=== PATIENT | female | born 1930 | race Caucasian/White ===

== ENCOUNTER 2018-05-27 16:44 | Inpatient (IN) | payer MEDICARE, BC ==
[~2018-05-27] VITALS: Ht 167.6 cm; Wt 54.9 kg
--- NOTE | 2018-05-27 17:00 | NUR ---
Dr Vick at the bedside for MSE.
[2018-05-27 17:35] LABS: ACETAMINOPHEN < 2.0 ug/mL (10-30); ALANINE AMINOTRANSFERASE 31 U/L (14-59); ALKALINE PHOSPHATASE 57 U/L (50-136); ASPARTATE AMINOTRANSFERASE 29 U/L (15-37); BILIRUBIN,DIRECT 0.2 mg/dL (0.0-0.2); BILIRUBIN,TOTAL 0.8 mg/dL (0.2-1.0); TOTAL PROTEIN, SERUM 7.2 g/dL (6.4-8.2)
[2018-05-27 17:39] LABS: ETHANOL < 3 MG/DL (0-0)
[2018-05-27] MEDS ORDERED: MAG355OR21 PO (17:42)
[2018-05-27] MEDS ORDERED: DONE5TAB34 PO (17:42)
[2018-05-27] MEDS ORDERED: DABI75CA3 PO (17:42)
[2018-05-27] MEDS ORDERED: DILT180C95 PO (17:42)
[2018-05-27] MEDS ORDERED: MIRT7.5T10 PO (17:42)
[2018-05-27] MEDS ORDERED: FAMO-132 PO (17:42)
[2018-05-27] MEDS ORDERED: QUET25TA PO ×3 (17:42)
[2018-05-27] MEDS ORDERED: ASPI81TA31 PO (17:42)
[2018-05-27] MEDS ORDERED: ONDA2VIA IV (17:42)
[2018-05-27] MEDS ORDERED: LEVO125T8 PO (17:42)
[2018-05-27] MEDS ORDERED: POLY255P19 PO (17:42)
[2018-05-27] MEDS ORDERED: GABA-532 PO (17:42)
[2018-05-27] MEDS ORDERED: SIMV40TA5 PO (17:42)
[2018-05-27] MEDS ORDERED: MEMA10TA PO (17:42)
[2018-05-27] MEDS ORDERED: GABA-534 PO (17:42)
[2018-05-27] MEDS ORDERED: QUET50TA PO (17:42)
[2018-05-27] MEDS ORDERED: DOCU100C36 PO (17:42)
--- NOTE | 2018-05-27 18:06 | NUR ---
DR SOW MEDICALLY CLEARED PT. PLACED A CALL TO PALLAVI SANTOS RN, FOR PSYCH EVAL.
--- NOTE | 2018-05-27 18:22 | NUR ---
Pt provided dinner, but states not liking any food and won't eat/drink today.
--- NOTE | 2018-05-27 18:40 | NUR ---
MRSA swab collected and sent to LAB. Belonging list completed.
--- NOTE | 2018-05-27 19:02 | NUR ---
Venecia from PET at the bedside for Psych eval. Pt's family info given to Venecia.
--- NOTE | 2018-05-27 19:33 | NUR ---
Pt is resting comfortably in bed with eyes closed. Safety measures implemented. Sitter at bedside. Pending geropsych admission.
--- NOTE | 2018-05-27 20:33 | NUR ---
Pt. admitted to MHU, under care of Dr. Estrada/Sarah Diagnosis: Psychosis Pt on [address] [place] Disabled. Belongs List completed. MRSA swab done.
[2018-05-27] MEDS ORDERED: ACETAMINOPHEN 325 MG TABLET PO PRN (20:45)
[2018-05-27] MEDS ORDERED: MAGNESIUM HYDROXIDE 30 ML LIQUID UDC PO PRN (20:45)
[2018-05-27] MEDS ORDERED: LORAZEPAM 0.5 MG TABLET PO PRN (20:45)
[2018-05-27] MEDS ORDERED: MAG HYDROX/AL HYDROX/SIMETH 30 ML LIQUID UDC PO PRN ×2 (20:45→23:15)
[2018-05-27 20:59] VITALS: BP 104/84
--- NOTE | 2018-05-27 22:30 | NUR ---
AT APPROX 2100 ADMITTED 87 YEARS OLD FEMALE TO [facility] MHU ON A 5150 HOLD FOR GD. PATIENT INITIALLY WAS TAKEN BY HER JUANJOSE TO [facility] ER IN [place] ON 05/24/18 D/T AGITATION, HALLUCINATING AND UNMANAGEABLE AT HOME. LATER, SHE WAS ADMITTED TO MED SURG/TELE UNIT WITH DX. ATRIAL FIB WITH RVR, IT WAS ALSO NOTED BY NURSING STAFF THAT PATIENT WAS ALSO HAVING AUDITORY AND VISUAL HALLUCINATIONS, AND INTERMITTENTLY AGITATED. ONCE MEDICALLY CLEARED PATIENT WAS TRANSPORTED TO [facility] ER AND WAS PLACED ON A 5150 FOR GD. HOLD STARTED ON 05/27/18 AT 1950 AND WILL END ON 05/30/18 AT 1950. UPON ADMISSION TO MHU, PATIENT WAS NOTED A/O X2 CALM AND COOPERATIVE. SHE IS ABLE TO AMBULATE WITH STEADY GAIT WITH THE AID OF A FWW. PATIENT NOTED UNKEPT, FORGETFUL, DISORGANIZED AND DISORIENTED. SHE WAS UNABLE TO SIGN ANY OF HIS ADMISSION PAPERS. UPON INTERVIEW SHE IS NOTED POOR HISTORIAN, HAVING AUDITORY HALLUCINATION. 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 MALLOY JUST TOLD ME THAT I NEED TO LEAVE THIS PLACE RIGHT AWAY". PATIENT WAS REASSURED AND REORIENTED. HEAD TO TOE ASSESSMENT WAS CONDUCTED, SKIN NOTED DRY WARM AND INTACT EXCEPT FOR MULTIPLE SKIN TAGS AND MOLES ON HER BACK AND CHEST. LONG UNKEPT TOENAILS AND FINGERNAILS WERE NOTED. WE WILL ORDER A PODIATRY CONSUL. PATIENT WAS NOTIFY OH HER HOLD. FACE TO FACE ASSESSMENT WAS DONE. OFFERED SNACKS. V/S STABLE AT THIS TIME. PATIENT IS UNDER THE CARE OF DR. RODRIGUEZ. WILL CONTINUE TO MONITOR.
[2018-05-27] MEDS ORDERED: POLYETHYLENE GLYCOL 3350 238 GM POWDER PO PRN (23:15)
[2018-05-28] MEDS ORDERED: MIRALAX 17 GM POWD.PACK PO PRN (07:14)
[2018-05-28 07:30] VITALS: BP 121/52
[2018-05-28] MEDS ORDERED: GABAPENTIN 100 MG CAPSULE PO SCH (08:00)
[2018-05-28] MEDS: LEVOTHYROXINE SODIUM 125 MCG TABLET PO SCH (08:28)
[2018-05-28] MEDS ORDERED: LEVOTHYROXINE SODIUM 125 MCG TABLET PO SCH (09:00)
[2018-05-28] MEDS: DOCUSATE SODIUM 100 MG CAPSULE PO SCH ×2 (09:50→17:14)
[2018-05-28] MEDS: DILTIAZEM HCL CD 180 MG CAP.SR.24H PO SCH (09:51)
[2018-05-28] MEDS: DABIGATRAN 75 MG PO SCH ×2 (12:49→17:06)
[2018-05-28 15:24] VITALS: BP 112/56
[2018-05-28 20:05] VITALS: BP 117/56
[2018-05-28] MEDS: FAMOTIDINE 20 MG TABLET PO SCH (20:42)
[2018-05-28] MEDS: MEMANTINE HCL 10 MG TABLET PO SCH (20:42)
[2018-05-28] MEDS: OLANZAPINE ZYDIS 5 MG TAB.RAPDIS PO SCH (20:43)
[2018-05-28] MEDS ORDERED: SIMVASTATIN 40 MG TABLET PO SCH (21:00)
[2018-05-28] MEDS ORDERED: DONEPEZIL 5 MG TABLET PO SCH (21:00)
[2018-05-28] MEDS: TEMAZEPAM 7.5 MG CAPSULE PO PRN (22:07)
[2018-05-29] MEDS: LEVOTHYROXINE SODIUM 125 MCG TABLET PO SCH (06:14)
[2018-05-29 07:30] VITALS: BP 129/52
[2018-05-29] MEDS: DOCUSATE SODIUM 100 MG CAPSULE PO SCH ×2 (09:01→17:54)
[2018-05-29] MEDS: DABIGATRAN 75 MG PO SCH ×2 (09:04→17:55)
[2018-05-29] MEDS: DILTIAZEM HCL CD 180 MG CAP.SR.24H PO SCH (09:16)
--- NOTE | 2018-05-29 12:15 | NUR ---
Initial Discharge Instructions: Patient currently lives at home [[address] [place], [address]; [phone]] with her . Per patient, she would like to return home upon discharge. Spoke with pt's , Eliezer ([phone]), and he has been advised by marriage and family social worker at [facility] to find a memory care assisted living facility to ensure proper care for his �s progressing illness. Eliezer has a list of facilities in his vicinity of [place] which he will be visiting within the next few days to determine which he would prefer. SW Program Rep and MHU SW will keep in touch with Eliezer and work with interdisciplinary team to ensure safe and proper discharge planning for the pt.
[2018-05-29 16:25] VITALS: BP 135/66
--- NOTE | 2018-05-29 19:45 | NUR ---
RECEIVED PATIENT IN HER ROOM IN BED ASLEEP BUT EASILY AROUSABLE. CALM UPON APPROACHED; PATIENT NOTED A/O X 1. SHE IS ABLE TO AMBULATE WITH STEADY GAIT WITH THE HELP OF A FWW AND ABLE TO MAKER HER NEEDS KNOWN. SHE IS NOTED FORGETFUL, WITHDRAWN, LOW MOOD, BLUNTED AFFECT. SHE CONTINUE HAVING VISUAL HALLUCINATION. PATIENT WAS NOTED LOOKING AT THE WINDOW AND STATED, "THERE IS A MAN LOOKING RIGHT AT ME AND HE IS GOING TO GET ME". PATIENT WAS REASSURED FOR HER SAFETY, SHE WAS REASSURED AND REDIRECTED THAT THERE WAS NO "MAN" OUTSIDE THE WINDOW; HOWEVER, SHE THEN STATED, "NOW THAT MAN IS LOOKING RIGHT AT YOU, RIGHT AT YOU." PATIENT WAS AGAIN REASSURED FOR HER SAFETY. SHE DENIES SI/HI. SHE DENIES HEARING VOICES. PATIENT NOTED IN NO DISTRESS. WILL CONTINUE TO MONITOR CLOSELY.
[2018-05-29 20:15] VITALS: BP 115/42
[2018-05-29] MEDS: MEMANTINE HCL 10 MG TABLET PO SCH (20:23)
[2018-05-29] MEDS: OLANZAPINE ZYDIS 5 MG TAB.RAPDIS PO SCH (20:23)
[2018-05-29] MEDS: FAMOTIDINE 20 MG TABLET PO SCH (20:23)
[2018-05-29] MEDS ORDERED: SIMVASTATIN 40 MG TABLET PO SCH (21:00)
--- NOTE | 2018-05-30 02:05 | NUR ---
PATIENT WAS HELPED TO THE BATHROOM. WHILE PATIENT SITTING IN THE TOILET, SHE STARRED AT THE WINDOW AND STATED, "THERE IS SOMETHING WRITTEN HERE, IT SAID 'EVERYTHING IS TAKING CARE, YOU NEED TO GO THERE". PATIENT WAS REASSURED THAT THERE WAS NO WRITING IN THE BATHROOM FLOOR. URINE WAS ALSO COLLECTED AND WILL BE SENT FOR URINALYSIS AND CULTURE AND SENSITIVITY. PT WAS AGAIN REASSURED FOR HER SAFETY. WILL CONTINUE TO MONITOR.
[2018-05-30 04:06] LABS: *BILIRUBIN,URIN NEGATIVE (NEGATIVE); *BLOOD, URINE NEGATIVE (NEGATIVE); *CLARITY,URINE CLEAR (CLEAR); *COLOR,URINE YELLOW (YELLOW); *KETONES,URINE TRACE (NEGATIVE); LEUKOCYTE ESTERASE ,URINE NEGATIVE (NEGATIVE); NITRITE, URINE NEGATIVE (NEGATIVE); PH,URINE 5.5 (5.0-8.0); UGLUCOSE NEGATIVE (NEGATIVE)
[2018-05-30 04:38] LABS: BACTERIA,URINE NONE SEEN /HPF (NONE SEEN); MUCUS,URINE MANY /LPF (0-FEW); RBC,URINE 0-3 /HPF (0-3); RENAL EPITHELIAL CELLS,URINE FEW /LPF (NONE SEEN); SQUAMOUS EPITHELIAL CELL,UR FEW /HPF (NONE SEEN); TRANSITIONAL EPI CELLS,URINE FEW /LPF (NONE SEEN); WBC,URINE 0-3 /HPF (0-3)
--- NOTE | 2018-05-30 04:41 | NUR ---
PATIENT WOJE UP AND STATED THAT SHE IS HAVING A TOOTH ACHE. TYLENOL 650MG PO PRN WAS GIVEN. SHE ALSO STATED THAT SHE CAN'T GO BACK TO SLEEP. SHE WAS NOTED ANXIOUS, LOW MOOD, SAD EXPRESSION. ATIVAN 0.5MG PO PRN WAS GIVEN. PATIENT WAS REASSURED FOR HER SAFETY. WILL CONTINUE TO MONITOR CLOSELY.
[2018-05-30] MEDS: LEVOTHYROXINE SODIUM 125 MCG TABLET PO SCH (06:56)
[2018-05-30] MEDS: DOCUSATE SODIUM 100 MG CAPSULE PO SCH ×2 (09:15→16:19)
[2018-05-30] MEDS: DABIGATRAN 75 MG PO SCH ×2 (09:16→16:21)
[2018-05-30] MEDS: DILTIAZEM HCL CD 180 MG CAP.SR.24H PO SCH (09:17)
[2018-05-30 10:00] VITALS: BP 129/62
--- NOTE | 2018-05-30 15:37 | NUR ---
DC Planning Note: Per Dr. Suazo recommendation, DEBBY Morton communicated to the pt.�s , Eliezer Love [phone] and Son, John Love [phone] that the pt. may benefit from going to a SNF upon discharge before transitioning to an assisted living facility of their liking. DEBBY Morton educated the family about SNF options offering the level of care that patient requires, Medicare fee coverage, and SNF locations in [facility] and [place]. Per family, they are open to the pt. going to the following SNF: [facility] [[address] [place] [address]; ], [facility] [[address] [place] [address]; ], and [facility][[address] [facility] [address]; ]. Also, informed DEBBY Morton that they are working with a jail advisor, Kathy North to facilitate continuation of care for pt. while she moves from facility to facility. Per Eliezer, he would like DEBBY Morton to keep Kathy North informed with patient�s discharge plan. DEBBY Morton will follow up with Kathy North as needed. DEBBY Morton collaborated with [facility] Patito GUARDADO and informed her of family's wishes. DEBBY Caputo will fax referrals to listed facilities when patient is closer to [place].
[2018-05-30 16:00] VITALS: BP 118/54
--- NOTE | 2018-05-30 17:04 | NUR ---
Process Group Note: Patients were asked to answer the question of "What is one thing you would change about yourself and why? Subjective: "..." [no response] Objective: Patient was asleep in bed and unable to be woken up to attend group. Assessment: Patient will need encouragement to attend group more often. Plan: Encourage group attendance as scheduled. can intake worker will continue to ask patient to attend group.
[2018-05-30 20:00] VITALS: BP 102/57
[2018-05-30] MEDS: FAMOTIDINE 20 MG TABLET PO SCH (20:51)
[2018-05-30] MEDS: OLANZAPINE ZYDIS 5 MG TAB.RAPDIS PO SCH (20:51)
[2018-05-30] MEDS: MEMANTINE HCL 10 MG TABLET PO SCH (20:51)
[2018-05-30] MEDS: ATORVASTATIN 20 MG TABLET PO SCH (20:51)
--- NOTE | 2018-05-31 01:45 | NUR ---
PATIENT CONTINUE HAVING VISUAL AND AUDITORY HALLUCINATION. SHE THREW HER WALKER AWAY FROM HER WHILE SHE WAS IN HER BED STATING THAT A MAN WAS THERE TO HURT HER. SHE ALSO STARED THAT SHE HEARD VOICES TELLING HER THAT SHE NEEDED TO "GO AWAY FROM HER". PATIENT WAS REASSURED AND REDIRECTED. TEMAZEPAM 7/5MG WAS GIVEN FOR INSOMNIA. WILL CONTINUE TO MONITOR.
[2018-05-31] MEDS: TEMAZEPAM 7.5 MG CAPSULE PO PRN (01:47)
[2018-05-31] MEDS: LEVOTHYROXINE SODIUM 125 MCG TABLET PO SCH (06:31)
[2018-05-31 07:30] VITALS: BP 119/55
[2018-05-31] MEDS: DOCUSATE SODIUM 100 MG CAPSULE PO SCH ×2 (08:22→16:52)
[2018-05-31] MEDS: DILTIAZEM HCL CD 180 MG CAP.SR.24H PO SCH (08:22)
[2018-05-31] MEDS: DABIGATRAN 75 MG PO SCH ×2 (08:23→16:53)
--- NOTE | 2018-05-31 15:50 | NUR ---
Firearms Report: DEBBY completed and submitted [employer] Firearms Report for 5250 GD certification.
[2018-05-31 16:00] VITALS: BP 102/57
--- NOTE | 2018-05-31 18:22 | NUR ---
NURSING : PATIENT TODAY STAYS MOST OF HER TIME IN HER BED, STILL SEEN ISOLATED AND WITHDRAWN, ALERT ORIENTED, MED COMPLIANT , NO SIGN OF ANY EPISODE OF HALLUCINATION IN MY SHIFT, KEPT COMFORTABLE , MONITORED THRU OUT THE DAY
--- NOTE | 2018-05-31 20:00 | NUR ---
RECEIVED PATIENT IN HER ROOM IN BED ASLEEP BUT EASILY AROUSABLE. SHE IS NOTED A/O X 1 CONFUSED, DISORGANIZED THINKING NAD WITHDRAWN. NO VISUAL OR AUDITORY HALLUCINATION WERE NOTED AT THIS TIME. PATIENT WAS REASSURED FOR HER SAFETY. WILL CONTINUE TO MONITOR CLOSELY.
[2018-05-31] MEDS: FAMOTIDINE 20 MG TABLET PO SCH (20:06)
[2018-05-31] MEDS: ATORVASTATIN 20 MG TABLET PO SCH (20:06)
[2018-05-31] MEDS: MEMANTINE HCL 10 MG TABLET PO SCH (20:06)
[2018-05-31] MEDS: OLANZAPINE ZYDIS 5 MG TAB.RAPDIS PO SCH (20:06)
[2018-05-31 22:04] VITALS: BP 123/66
[2018-06-01] MEDS: LEVOTHYROXINE SODIUM 125 MCG TABLET PO SCH (07:00)
[2018-06-01 07:30] VITALS: BP 105/75
[2018-06-01] MEDS: DOCUSATE SODIUM 100 MG CAPSULE PO SCH ×2 (09:11→16:04)
[2018-06-01] MEDS: DILTIAZEM HCL CD 180 MG CAP.SR.24H PO SCH (09:11)
[2018-06-01] MEDS: DABIGATRAN 75 MG PO SCH ×2 (09:13→16:05)
--- NOTE | 2018-06-01 14:03 | NUR ---
Social work Fax SNF packet to [facility] [[address] [place] [address]; ] Fax number: [phone] [facility] [[address] [place] [address]; ], Fax number: [phone] [facility][[address] [facility] [address]; ]. Fax number: [phone]
[2018-06-01 16:00] VITALS: BP 100/63
[2018-06-01] MEDS: ATORVASTATIN 20 MG TABLET PO SCH (20:23)
[2018-06-01] MEDS: MEMANTINE HCL 10 MG TABLET PO SCH (20:23)
[2018-06-01] MEDS: FAMOTIDINE 20 MG TABLET PO SCH (20:23)
[2018-06-01] MEDS: OLANZAPINE ZYDIS 5 MG TAB.RAPDIS PO SCH (20:24)
[2018-06-01 21:10] VITALS: BP 107/67
[2018-06-02] MEDS: LEVOTHYROXINE SODIUM 125 MCG TABLET PO SCH (06:29)
[2018-06-02 07:30] VITALS: BP 118/53
[2018-06-02] MEDS: DILTIAZEM HCL CD 180 MG CAP.SR.24H PO SCH (09:00)
[2018-06-02] MEDS: DOCUSATE SODIUM 100 MG CAPSULE PO SCH ×2 (09:08→17:02)
[2018-06-02] MEDS: DABIGATRAN 75 MG PO SCH ×2 (09:09→17:04)
[2018-06-02 16:00] VITALS: BP 101/47
[2018-06-02] MEDS: MEMANTINE HCL 10 MG TABLET PO SCH (20:01)
[2018-06-02] MEDS: OLANZAPINE ZYDIS 5 MG TAB.RAPDIS PO SCH (20:01)
[2018-06-02] MEDS: ATORVASTATIN 20 MG TABLET PO SCH (20:01)
[2018-06-02] MEDS: FAMOTIDINE 20 MG TABLET PO SCH (20:01)
[2018-06-02 21:48] VITALS: BP 112/54
[2018-06-03] MEDS: LEVOTHYROXINE SODIUM 125 MCG TABLET PO SCH (06:16)
[2018-06-03 07:30] VITALS: BP 118/62
[2018-06-03] MEDS: DOCUSATE SODIUM 100 MG CAPSULE PO SCH ×2 (08:22→17:55)
[2018-06-03] MEDS: DILTIAZEM HCL CD 180 MG CAP.SR.24H PO SCH (08:22)
[2018-06-03] MEDS: DABIGATRAN 75 MG PO SCH ×2 (08:24→17:59)
[2018-06-03 16:00] VITALS: BP 111/46
[2018-06-03 20:00] VITALS: BP 125/60
[2018-06-03] MEDS: ATORVASTATIN 20 MG TABLET PO SCH (20:19)
[2018-06-03] MEDS: FAMOTIDINE 20 MG TABLET PO SCH (20:19)
[2018-06-03] MEDS: MEMANTINE HCL 10 MG TABLET PO SCH (20:19)
[2018-06-03] MEDS: OLANZAPINE ZYDIS 5 MG TAB.RAPDIS PO SCH (20:21)
[2018-06-04] MEDS: LEVOTHYROXINE SODIUM 125 MCG TABLET PO SCH (06:32)
--- NOTE | 2018-06-04 06:41 | NUR ---
gps: remain calm and cooperative with medications and care. no agressive behavior noted at this time. slept 8 hrs through the night. resting in bed comfortably. continue plan of care.
[2018-06-04 07:30] VITALS: BP 91/52
[2018-06-04] MEDS: DOCUSATE SODIUM 100 MG CAPSULE PO SCH ×2 (08:56→16:34)
[2018-06-04] MEDS: DABIGATRAN 75 MG PO SCH ×2 (08:57→16:40)
[2018-06-04] MEDS: DILTIAZEM HCL CD 180 MG CAP.SR.24H PO SCH (08:58)
[2018-06-04 15:38] VITALS: BP 107/49
--- NOTE | 2018-06-04 16:20 | NUR ---
Motor And Controls Tester DC Plannin:20 pm -DEBBY Morton contacted pt.�s , Eliezer Contreras to discuss SNF�s that have accepted the pt. DEBBY Button Machine Operator informed that the accepting SNF�s include: [facility] [[address] [facility] [address] ; ] and [facility] [[address] [facility] [place] [address]; ]. Per Eliezer, he would prefer that the pt. discharge to an assisted living facility rather than a SNF. However he will be visiting the SNF mentioned and make a concrete decision. Per Eliezer, the assisted living facilities that he is interested include: [facility] [[address] [place] [address]], and [facility] [[address] [place], [place]]. 3:30 pm -Per Jason request DEBBY Morton contacted Senior placement advisor, Kathy North [[facility] [address], [facility] [address]; ] to collaborate with placement. Per Kathy, she feels positively about the pt. going to a SNF, especially if the pt.�s psychiatrist has recommended it. Although her role is not to assist with SNF placement, Kathy expressed she can follow the pt. and her , Eliezer to the SNF for future placement assistance when needed. In addition, Kathy has yet to discuss bergeron points for [facility] with Eliezer and will do so as soon as possible. No further action required. Addendum: 06/05/18 at 0828 by DAYANA CUNNINGHAM SW will continue to follow-up with family and placement agent to ensure a safe and proper discharge for the patient.
[2018-06-04] MEDS: MEMANTINE HCL 10 MG TABLET PO SCH (20:04)
[2018-06-04] MEDS: FAMOTIDINE 20 MG TABLET PO SCH (20:04)
[2018-06-04] MEDS: ATORVASTATIN 20 MG TABLET PO SCH (20:04)
[2018-06-04] MEDS: OLANZAPINE ZYDIS 5 MG TAB.RAPDIS PO SCH (20:19)
[2018-06-04 20:37] VITALS: BP 105/62
[2018-06-05] MEDS: LEVOTHYROXINE SODIUM 125 MCG TABLET PO SCH (06:07)
--- NOTE | 2018-06-05 06:43 | NUR ---
gps: Remain calm and cooperative with medications and care. no aggressive behavior noted at this time. slept 9:30 hrs through the night. resting in bed comfortably. continue plan of care
[2018-06-05 07:30] VITALS: BP 113/50
[2018-06-05] MEDS: DOCUSATE SODIUM 100 MG CAPSULE PO SCH ×2 (08:16→16:41)
[2018-06-05] MEDS: DABIGATRAN 75 MG PO SCH ×2 (08:17→16:41)
[2018-06-05] MEDS: DILTIAZEM HCL CD 180 MG CAP.SR.24H PO SCH (08:20)
[2018-06-05 16:04] VITALS: BP 127/62
--- NOTE | 2018-06-05 16:58 | NUR ---
Discharge Planning: general warehouse worker called and spoke with patient , Eliezer [[phone]], regarding discharge planning. general warehouse worker informed Eliezer of patient progress and that it is possible patient will discharge soon. general warehouse worker advised Eliezer to have a choice of placement in mind. Eliezer is agreeable to information and states he will be touring [facility] and [facility] tomorrow.
[2018-06-05] MEDS: OLANZAPINE ZYDIS 5 MG TAB.RAPDIS PO SCH (21:04)
[2018-06-05] MEDS: ATORVASTATIN 20 MG TABLET PO SCH (21:04)
[2018-06-05] MEDS: FAMOTIDINE 20 MG TABLET PO SCH (21:04)
[2018-06-05] MEDS: MEMANTINE HCL 10 MG TABLET PO SCH (21:06)
[2018-06-05 21:08] VITALS: BP 106/53
[2018-06-06] MEDS: LEVOTHYROXINE SODIUM 125 MCG TABLET PO SCH (07:18)
[2018-06-06 07:30] VITALS: BP 101/59
[2018-06-06] MEDS: DILTIAZEM HCL CD 180 MG CAP.SR.24H PO SCH (09:00)
[2018-06-06] MEDS: DOCUSATE SODIUM 100 MG CAPSULE PO SCH ×2 (09:02→17:08)
[2018-06-06] MEDS: DABIGATRAN 75 MG PO SCH ×2 (09:03→17:09)
--- NOTE | 2018-06-06 10:24 | NUR ---
0900 PATIENT B/P RECHECKED-89/54, HR- 84 PATIENT DENIES DIZZINESS, ALERT AND OX3. CARDEZEM CD 180 MG CAP HELD THIS MORNING OFFERED FLUIDS, WILL RECHECK B/P AND MONITOR S/S OF DIZZINESS, ADVICE PATIENT TO CALL FOR ASSISTANCE WHEN OUT FO BED. 1029 rECHECKED B/P 91/54 HR-84/MIN.
--- NOTE | 2018-06-06 13:15 | NUR ---
Adjunct Political Science Instructor Discharge Planning: DEBBY Walton spoke with patient�s Son, John [phone] and Eliezer Contreras cell regarding their placement decision. John expressed that they haven�t visited the accepting SNF�s : [email or web address] [[address] [facility]. [facility], [address]] or [facility] [[address] [facility] [address] ; ] in order to make a decision. DEBBY walton informed family that the pt. is improving and could discharge soon and stressed the importance of visiting those accepting SNF�s. The family concluded that they will be touring those SNF�s today and should have a decision by 06/07/18. John requested more information regarding pt.�s qualifying for SNF. DEBBY Walton educated family about shelter need the patient has including: medication management, monitoring her vitals, and continuity of care by her current psychiatrist, Dr. Estrada. Family was agreeable that the pt. can benefit from SNF placement. John expressed interest in caregiving services in the home. DEBBY Walton provided family with Caregiving resources which specialize in Dementia including: [facility] , [facility] [ [facility], [place] [address]; ], [facility] [ ]. Family will follow up and contact these resources if needed. DEBBY Walton will continue to be available to the patient and family, and will continue to follow-up to ensure a safe discharge.
[2018-06-06 16:00] VITALS: BP 96/50
--- NOTE | 2018-06-06 16:20 | NUR ---
Guest Services Ambassador Discharge Plannin:00pm- Pt.�s , Eliezer left a voicemail confirming that him and his son John have toured SNF�s and have made a concrete decision that [facility] [[address] [facility]. [facility], [address]] is the SNF they would like pt to be discharged to. 4:00pm- DEBBY Gastrointestinal Technician called Eliezer back to confirm [email or web address] as her post discharge destination. Eliezer expressed he was very happy about JJ going to [facility]. and thanked DEBBY Morton for all the assistance with this process. DEBBY Gastrointestinal Technician and other social workers will collaborate with interdisciplinary team to conduct a safe and proper discharge on 06/07/17.
[2018-06-06 20:00] VITALS: BP 104/60
[2018-06-06] MEDS: ATORVASTATIN 20 MG TABLET PO SCH (20:08)
[2018-06-06] MEDS: MEMANTINE HCL 10 MG TABLET PO SCH (20:13)
[2018-06-06] MEDS: FAMOTIDINE 20 MG TABLET PO SCH (20:13)
[2018-06-06] MEDS: OLANZAPINE ZYDIS 5 MG TAB.RAPDIS PO SCH (20:13)
[2018-06-07] MEDS: LEVOTHYROXINE SODIUM 125 MCG TABLET PO SCH (06:39)
[2018-06-07 07:30] VITALS: BP 88/56
[2018-06-07] MEDS: DILTIAZEM HCL CD 180 MG CAP.SR.24H PO SCH (08:58)
[2018-06-07] MEDS: DOCUSATE SODIUM 100 MG CAPSULE PO SCH (08:59)
[2018-06-07 09:00] VITALS: BP 91/58
[2018-06-07] MEDS: DABIGATRAN 75 MG PO SCH (09:00)
--- NOTE | 2018-06-07 09:57 | NUR ---
DC Note: Patient will be discharged to [facility] [Address: [address] [facility], [place] [address]; ] via ambulance at 11am. Please arrange an ambulance for this patient. Patient�s , Eliezer Contreras ([phone]) is aware and agreeable with discharge plans. Patient is alert and oriented x1-2 and is agreeable. Patient will follow-up at the facility with Dr. Fitzpatrick (Twisting Machine Operator) and Dr. Estrada (Psychiatrist).
--- NOTE | 2018-06-07 11:45 | NUR ---
GPS: NURSING: DISCHARGE NOTE: PATIENT DISCHARGE TO [facility] SN[facility] VIA AMBULANCE AND 3 EMT VIA [facility] D/C 5150 HOLD, PATIENT . DISCHARGE INSTRUCTION GIVEN WITH A LITTLE COMPREHENSION DUE TO DEMENTIA/ ALZHEIMER'S. BELONGINGS GIVEN AND ACCOUNTED FOR AND MEDICATION ( PRADAXA) GIVEN BACK TO PATIENT AND QUESTIONS AND CONCERNS ARE ADDRESSED.
== END 2018-06-07 11:45 | DRG 885 ==
LOC: ER 16:47 → GPS 20:39
PROVIDERS: ADMIT Psychiatry & Neurology Psychosomatic Medicine; ATTEND Nurse Practitioner Acute Care
DX: F25.0 Schizoaffective disorder, bipolar type (principal); J84.9 Interstitial pulmonary disease, unspecified; G30.9 Alzheimer's disease, unspecified; F02.80 Dementia in other diseases classified elsewhere, unspecified severity, without behavioral disturbance, psychotic disturbance, mood disturbance, and anxiety; I48.91 Unspecified atrial fibrillation; Z95.0 Presence of cardiac pacemaker; E03.9 Hypothyroidism, unspecified; R26.81 Unsteadiness on feet; K59.00 Constipation, unspecified; Z91.14 Patient's other noncompliance with medication regimen; R44.1 Visual hallucinations
CPT/HCPCS: 36415; 71045; 87086; 93005; A4663; G0480; G0480-TC